=== PATIENT | male | born 1985 | race Caucasian/White ===

== ENCOUNTER 2024-06-13 16:15 | Emergency (ER) | payer OTHER ==
[~2024-06-13] VITALS: Ht 185.4 cm; Wt 77.1 kg
[2024-06-13 16:23] VITALS: BP 141/84; PULSE 98; RESP 16; TEMP 99.1; O2SAT 99
[2024-06-13] MEDS ORDERED: ACET-1194 PO (17:30)
[2024-06-13 18:28] LABS: FLU A ANTIGEN negative (NEGATIVE); FLU B ANTIGEN NEGATIVE (NEGATIVE)
== END 2024-06-13 17:37 | disposition home or self-care (01) ==
LOC: MED 16:15
DX: J06.9 Acute upper respiratory infection, unspecified (principal); Z20.822 Contact with and (suspected) exposure to COVID-19; Z79.899 Other long term (current) drug therapy
CPT/HCPCS: 99283